=== PATIENT | female | born 2000 | race Caucasian/White ===

== ENCOUNTER 2023-11-18 09:56 | Emergency (ER) | payer MEDICAID ==
[2023-11-18 10:15] VITALS: TEMP 97.4
[2023-11-18] MEDS ORDERED: Sodium Chloride 0.9% 1000 ML 1,000 ML ONE (10:28)
[2023-11-18] MEDS: Sodium Chloride 0.9% 1000 ML 1,000 ML IV STA (10:29)
[2023-11-18] MEDS ORDERED: Zofran 4 MG/2 ML VIAL ONE (10:29)
[2023-11-18] MEDS: Zofran 4 MG/2 ML VIAL IV ONE (10:30)
[2023-11-18 10:48] LABS: Absolute Neutrophil Ct (ANC) 8.01 x10^3/uL (1.4-6.9); BASOPHIL % 0.5 % (0.0-0.4); Basophil (Absolute #) 0.05 x10^3/uL (0-0.4); Eosinophil % 0.6 % (0.00-5.0); Eosinophil (Absolute #) 0.06 x10^3/uL (0-0.5); Hematocrit 36.1 % (35-47); IMMATURE GRAN # 0.16 x10^3u/L (0.00-0.03); IMMATURE GRAN % 1.5 % (0.00-0.4); Lymphocyte (Absolute #) 1.56 x10^3/uL (1.0-4.6); Mean Cell Volume 95.3 fL (78-100); Mean Corpuscular Hemoglobin 31.7 pg (26-32); Mean Corpuscular Hgb Concent. 33.2 g/dL (32-36); Mean Platelet Volume 11.3 fL (7.5-11.0); Monocyte (Absolute #) 0.54 x10^3/uL (0.0-1.3); Monocytes % 5.2 % (0.0-12.0); Neutrophil % 77.2 % (36.0-66.0); Platelet Count 245 x10^3/uL (150-450); Red Blood Count 3.79 x10^6/uL (4.1-5.4); Red Cell Distribution Width 12.9 % (11.5-14.0); White Blood Count 10.4 x10^3/uL (4.0-10.5)
[2023-11-18 11:12] LABS: ALBUMIN 3.5 g/dL (3.5-5.0); ANION GAP 9.8 MEQ/L (5-15); BILIRUBIN,TOTAL 0.6 mg/dL (0.2-1.3); Calcium 9.2 mg/dL (8.4-10.2); Creatinine 1 0.27 mg/dL (0.52-1.04); EST GLOMERULAR FILTRATION RATE 158.7 ML/MIN; Potassium 3.6 mmol/L (3.5-5.1); Total Protein 6.1 g/dL (6.3-8.2)
[2023-11-18 11:15] LABS: Appearance Cloudy (Clear); Bacteria Moderate /HPF (None Seen); Bilirubin Small (Negative); Blood Negative (Negative); Epithelial Cells Many /HPF (None Seen); Glucose, Urine Negative (Negative); Hyaline Casts NONE SEEN /LPF (0-2); Ketones Trace (Negative); Leukocyte Esterase Small (Negative); Nitrite Negative (Negative); Ph 6.5 (4.6-8.0); Protein,Urine Dip Trace (Negative); RBC 0-2 /HPF (0-5); Specific Gravity 1.025 (1.005-1.030); WBC 21-50 /HPF (0-5)
[2023-11-18 11:16] LABS: ADD URINE CULTURE? YES (NO)
[2023-11-18 11:28] VITALS: BP 116/76; PULSE 81; RESP 20; O2SAT 95
--- NOTE | 2023-11-18 11:38 | ERPHSYRPT ---
- History of Present Illness Source: patient Exam Limitations: no limitations Patient Subjective Stated Complaint: C/O N/V X 2 days. Patient states she was on the way to see her OB doctor today and had to cake puller a few times to vomit on the way to the office. Her OB told her to go to the ER. Patient denies any fever, pain, or diarrhea. She states, "I really feel fine, I've been pretty sick at times during and assumed this was normal." Triage Nursing Assessment: Patient ambulated back to ER without difficulties. She is alert and oriented. No SOB. No cough. LO WNL. Patient is a little pale; patient doesn't think her skin tone is any different than her normal today. No edema noted. No active vomiting during assessment. Physician History: 23-year-old female who is 34 weeks developed nausea and vomiting on the way to her OB exam today. She called her OBs office who told her to come to the ER. Patient much improved upon ER presentation and denies any abdominal pain, fever, dysuria, vaginal bleeding, and vaginal discharge. Patient in stable condition and does not understand to and why she was told to come to the emergency room. Patient's Zofran prescription has run out, and she was going to get it refilled today at the OB. G1, P0 Ab0 Timing/Duration: today Severity: mild Modifying Factors: Improves With: nothing Associated Symptoms: vomiting Allergies/Adverse Reactions: No Known Drug Allergies Allergy (Verified 11/18/23 10:05) Home Medications: Ferrous Sulfate 325 mg [Feosol 325 mg] 1 tab PO DAILY 11/18/23 [History] Pnv No.95/Ferrous Fum/Folic AC [ Caplet] 1 tab PO DAILY 11/18/23 [History] Venlafaxine HCl [Venlafaxine HCl ER] 1 cap PO DAILY 11/18/23 [History] Hx Tetanus, Diphtheria Vaccination/Date Given: Yes Hx Influenza Vaccination/Date Given: No Hx Pneumococcal Vaccination/Date Given: No Immunizations Up to Date: Yes Travel Risk - International Travel Have you traveled outside of the country in past 3 weeks: No - Coronavirus Screening Are you exhibiting any of the following symptoms?: Yes Symptoms: Vomiting/Diarrhea Close contact with a COVID-19 positive Pt in past 14-21 Days: No - Vaccine Status Have you recieved a Covid-19 vaccination: Yes 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 - Review of Systems Constitutional: No Symptoms Eyes: No Symptoms Ears, Nose, & Throat: No Symptoms Respiratory: No Symptoms Cardiac: No Symptoms Abdominal/Gastrointestinal: Nausea, Vomiting Genitourinary Symptoms: No Symptoms Musculoskeletal: No Symptoms Skin: No Symptoms Neurological: No Symptoms Psychological: No Symptoms Endocrine: No Symptoms Hematologic/Lymphatic: No Symptoms Immunological/Allergic: No Symptoms - Past Medical History Pertinent Past Medical History: Yes Psycho-Social History: Bipolar, Depression Other Medical History: related anemia - Past Surgical History Past Surgical History: No - Social History Smoking Status: Never smoker Exposure to second hand smoke: No Drug Use: none Patient Lives Alone: No - Female History Hx Now: Yes Gestational Age: 34 weeks - Nursing Vital Signs Nursing Vital Signs: Initial Vital Signs Pulse Rate 91 H 11/18/23 10:05 Respiratory Rate 19 11/18/23 10:05 Blood Pressure 131/72 11/18/23 10:05 O2 Sat by Pulse Oximetry 95 11/18/23 10:05 Pain Scale Pain Intensity 0 Within normal limits - Physical Exam General Appearance: no apparent distress Eye Exam: PERRL/EOMI, eyes nml inspection Ears, Nose, Throat Exam: normal ENT inspection, TMs normal, pharynx normal, moist mucous membranes Neck Exam: normal inspection, non-tender, supple, full range of motion, No meningismus, No mass, No Brudzinski, No Kernig's Respiratory Exam: normal breath sounds, lungs clear, airway intact, No respiratory distress Cardiovascular Exam: regular rate/rhythm, normal heart sounds, normal peripheral pulses, capillary refill <2 sec, No murmur Gastrointestinal/Abdomen Exam: soft, other (), No tenderness Pelvic Exam: not done Back Exam: normal inspection, normal range of motion Extremity Exam: normal inspection, normal range of motion Neurologic Exam: alert, oriented x 3, cooperative, brass sorter II-XII nml as tested, normal mood/affect, nml cerebellar function, nml station & gait, sensation nml Skin Exam: normal color, warm, dry, No rash Lymphatic Exam: No adenopathy SpO2 Interpretation: normal SpO2: 95 O2 Delivery: Room Air - Course Nursing assessment & vital signs reviewed: Yes Ordered Tests: Active Orders 24 hr Category Date Time Status CBC W DIFF Stat Lab 11/18/23 10:28 Completed CMP Stat Lab 11/18/23 10:28 Completed CULTURE,URINE Stat Lab 11/18/23 10:28 Received MAG [MAGNESIUM] Stat Lab 11/18/23 10:28 Completed UA W/RFX UR CULTURE Stat Lab 11/18/23 10:28 Completed Medication Summary Discontinued Medications Generic Name Dose Route Start Last Admin Trade Name Vernon PRN Reason Stop Dose Admin Sodium Chloride 1,000 mls @ 999 mls/hr 11/18/23 10:27 11/18/23 11:51 Sodium Chloride 0.9% 1000 Ml IV 11/18/23 11:27 Infused .Q1H1M STA Infusion Sodium Chloride Confirm 11/18/23 10:28 Sodium Chloride 0.9% 1000 Ml Administered 11/18/23 10:29 Dose 1,000 mls @ ud .ROUTE .STK-MED ONE Ondansetron HCl 4 mg 11/18/23 10:28 11/18/23 10:30 Ondansetron Hcl 4 Mg/2 Ml Vial IV 11/18/23 10:29 4 mg STAT ONE Administration Ondansetron HCl Confirm 11/18/23 10:29 Ondansetron Hcl 4 Mg/2 Ml Vial Administered 11/18/23 10:30 Dose 4 mg .ROUTE .STK-MED ONE Lab/Rad Data: Laboratory Result Diagrams 11/18/23 10:28 11/18/23 10:28 Laboratory Results 11/18/23 11/18/23 11/18/23 Range/Units 10:28 10:28 10:28 WBC 10.4 (4.0-10.5) x10^3/uL RBC 3.79 L (4.1-5.4) x10^6/uL Hgb 12.0 (12.0-16.0) g/dL Hct 36.1 (35-47) % MCV 95.3 (78-100) fL MCH 31.7 (26-32) pg MCHC 33.2 (32-36) g/dL RDW 12.9 (11.5-14.0) % Plt Count 245 (150-450) x10^3/uL MPV 11.3 H (7.5-11.0) fL Gran % 77.2 H (36.0-66.0) % Immature Gran % (Auto) 1.5 H (0.00-0.4) % Nucleat RBC Rel Count 0.0 (0.00-0.1) % Eos # (Auto) 0.06 (0-0.5) x10^3/uL Immature Gran # (Auto) 0.16 H (0.00-0.03) x10^3u/L Absolute Lymphs (auto) 1.56 (1.0-4.6) x10^3/uL Absolute Monos (auto) 0.54 (0.0-1.3) x10^3/uL Absolute Nucleated RBC 0.00 (0.00-0.01) x10^3u/L Lymphocytes % 15.0 L (24.0-44.0) % Monocytes % 5.2 (0.0-12.0) % Eosinophils % 0.6 (0.00-5.0) % Basophils % 0.5 (0.0-0.4) % Absolute Granulocytes 8.01 H (1.4-6.9) x10^3/uL Basophils # 0.05 (0-0.4) x10^3/uL Sodium 134 L (137-145) mmol/L Potassium 3.6 (3.5-5.1) mmol/L Chloride 106 (98-107) mmol/L Carbon Dioxide 21 L (22-30) mmol/L Anion Gap 9.8 (5-15) MEQ/L BUN 4 L (7-17) mg/dL Creatinine 0.27 L (0.52-1.04) mg/dL Estimated GFR 158.7 ML/MIN Glucose 96 (74-106) mg/dL Calcium 9.2 (8.4-10.2) mg/dL Magnesium 1.7 (1.6-2.3) mg/dL Total Bilirubin 0.60 (0.2-1.3) mg/dL AST 16 (14-36) U/L ALT 13 (0-35) U/L Alkaline Phosphatase 91 (38-126) U/L Serum Total Protein 6.1 L (6.3-8.2) g/dL Albumin 3.5 (3.5-5.0) g/dL Urine Color (Yellow) Urine Appearance (Clear) Urine pH (4.6-8.0) Ur Specific Herrin (1.005-1.030) Urine Protein (Negative) Urine Glucose (UA) (Negative) mg/dL Urine Ketones (Negative) Urine Blood (Negative) Urine Nitrite (Negative) Urine Bilirubin (Negative) Urine Urobilinogen (0.2) mg/dL Ur Leukocyte Esterase (Negative) U Hyaline Cast (Auto) (0-2) /LPF Urine Microscopic RBC (0-5) /HPF Urine Microscopic WBC (0-5) /HPF Ur Epithelial Cells (None Seen) /HPF Urine Bacteria (None Seen) /HPF Urine Yeast (Budding) (None Seen) /HPF Urine Culture Reflexed (NO) 11/18/23 Range/Units 10:28 WBC (4.0-10.5) x10^3/uL RBC (4.1-5.4) x10^6/uL Hgb (12.0-16.0) g/dL Hct (35-47) % MCV (78-100) fL MCH (26-32) pg MCHC (32-36) g/dL RDW (11.5-14.0) % Plt Count (150-450) x10^3/uL MPV (7.5-11.0) fL Gran % (36.0-66.0) % Immature Gran % (Auto) (0.00-0.4) % Nucleat RBC Rel Count (0.00-0.1) % Eos # (Auto) (0-0.5) x10^3/uL Immature Gran # (Auto) (0.00-0.03) x10^3u/L Absolute Lymphs (auto) (1.0-4.6) x10^3/uL Absolute Monos (auto) (0.0-1.3) x10^3/uL Absolute Nucleated RBC (0.00-0.01) x10^3u/L Lymphocytes % (24.0-44.0) % Monocytes % (0.0-12.0) % Eosinophils % (0.00-5.0) % Basophils % (0.0-0.4) % Absolute Granulocytes (1.4-6.9) x10^3/uL Basophils # (0-0.4) x10^3/uL Sodium (137-145) mmol/L Potassium (3.5-5.1) mmol/L Chloride (98-107) mmol/L Carbon Dioxide (22-30) mmol/L Anion Gap (5-15) MEQ/L BUN (7-17) mg/dL Creatinine (0.52-1.04) mg/dL Estimated GFR ML/MIN Glucose (74-106) mg/dL Calcium (8.4-10.2) mg/dL Magnesium (1.6-2.3) mg/dL Total Bilirubin (0.2-1.3) mg/dL AST (14-36) U/L ALT (0-35) U/L Alkaline Phosphatase (38-126) U/L Serum Total Protein (6.3-8.2) g/dL Albumin (3.5-5.0) g/dL Urine Color Dark Yellow A (Yellow) Urine Appearance Cloudy A (Clear) Urine pH 6.5 (4.6-8.0) Ur Specific Herrin 1.025 (1.005-1.030) Urine Protein Trace A (Negative) Urine Glucose (UA) Negative (Negative) mg/dL Urine Ketones Trace A (Negative) Urine Blood Negative (Negative) Urine Nitrite Negative (Negative) Urine Bilirubin Small A (Negative) Urine Urobilinogen 1.0 A (0.2) mg/dL Ur Leukocyte Esterase Small A (Negative) U Hyaline Cast (Auto) NONE SEEN (0-2) /LPF Urine Microscopic RBC 0-2 (0-5) /HPF Urine Microscopic WBC 21-50 A (0-5) /HPF Ur Epithelial Cells Many A (None Seen) /HPF Urine Bacteria Moderate A (None Seen) /HPF Urine Yeast (Budding) (None Seen) /HPF Urine Culture Reflexed YES (NO) - Progress Progress: improved Progress Note: 11/18/23 11:36 Nursing note and vital signs reviewed. No food or housing insecurity noted IV access started 1 L normal saline bolus and 4 mg IV Zofran given. Patient greatly improved. Good heart sounds per nursing. Patient has mild urinary tract infection and will be treated with Macrobid 100 mg twice daily for 5 days. Zofran also prescribed. Patient discharged in stable condition to follow-up with her OB and return to ER as needed. Counseled pt/family regarding: lab results, diagnosis, need for follow-up Medical Desision Making - Diagnostic Testing Diagnostic test were ordered, analyzed, and reviewed by me: Yes - Risk of complications The pt has a mod risk of morbidity or mortality based on: Need for prescription drug management - Departure Departure Disposition: Home Clinical Impression: Hyperemesis gravidarum Condition: Stable Critical Care Time: No Referrals: MARY GOFF MD [Primary Care Provider] - Follow up/PCP as directed Instructions: Hyperemesis Gravidarum (DC) Additional Instructions: Follow-up with your OB Fluids Zofran as needed for nausea and vomiting Macrobid twice a day for 5 days for urinary tract infection Return to ER as needed Prescriptions: Ondansetron ODT 4 MG [Zofran Odt 4 mg] 4 mg PO Q6H PRN PRN #8 tablet PRN Reason: Nausea Nitrofurantoin Macro 100 mg [Macrobid 100MG Capsule] 100 mg PO BID #10 cap
== END 2023-11-18 11:55 | disposition home or self-care (01) ==
LOC: ED 09:56
DX: O21.0 Mild hyperemesis gravidarum (principal); Z3A.34 34 weeks gestation of pregnancy; Z79.899 Other long term (current) drug therapy
CPT/HCPCS: 36415; 80053; 81001; 83735; 85025; 87086; 96374; 99284; J2405

== ENCOUNTER 2023-12-14 23:46 | Inpatient (IN) | payer MEDICAID, OTHER ==
[2023-12-15 00:16] LABS: AMNISURE TEST RESULTS POSITIVE (NEGATIVE)
[2023-12-15] MEDS ORDERED: Zofran 4 MG/2 ML VIAL IV PRN (00:29)
[2023-12-15] MEDS ORDERED: XYLOCAINE 1% HCL 20 ML MDV IJ PRN (00:29)
[2023-12-15 01:00] LABS: Appearance Clear (Clear); Bacteria None Seen /HPF (None Seen); Bilirubin Negative (Negative); Blood NHT (Negative); Epithelial Cells Rare /HPF (None Seen); Glucose, Urine 500 mg/dL (Negative); Hyaline Casts NONE SEEN /LPF (0-2); Ketones Negative (Negative); Leukocyte Esterase Negative (Negative); Nitrite Negative (Negative); Ph 6.5 (4.6-8.0); Protein,Urine Dip Negative (Negative); WBC 0-2 /HPF (0-5)
[2023-12-15 01:09] LABS: ADD URINE CULTURE? YES (NO)
[2023-12-15 01:42] LABS: Amphetamine,Urine NEGATIVE (NEGATIVE); Barbiturate,Urine NEGATIVE (NEGATIVE); Benzodiazepine,Urine NEGATIVE (NEGATIVE); Cocaine,Urine NEGATIVE (NEGATIVE); Methadone,Urine NEGATIVE (NEGATIVE); Opiate,Urine NEGATIVE (NEGATIVE); PCP,Urine NEGATIVE (NEGATIVE); THC,Urine POSITIVE (NEGATIVE)
[2023-12-15 01:49] LABS: Absolute Neutrophil Ct (ANC) 11.68 x10^3/uL (1.4-6.9); BASOPHIL % 0.4 % (0.0-0.4); Basophil (Absolute #) 0.06 x10^3/uL (0-0.4); Eosinophil % 0.5 % (0.00-5.0); Eosinophil (Absolute #) 0.08 x10^3/uL (0-0.5); Hematocrit 38.4 % (35-47); Hemoglobin 12.6 g/dL (12.0-16.0); IMMATURE GRAN # 0.44 x10^3u/L (0.00-0.03); IMMATURE GRAN % 2.9 % (0.00-0.4); Lymphocyte (Absolute #) 1.84 x10^3/uL (1.0-4.6); Lymphocytes % 12.1 % (24.0-44.0); Mean Cell Volume 97.2 fL (78-100); Mean Corpuscular Hemoglobin 31.9 pg (26-32); Mean Corpuscular Hgb Concent. 32.8 g/dL (32-36); Mean Platelet Volume 11.1 fL (7.5-11.0); Monocyte (Absolute #) 1.07 x10^3/uL (0.0-1.3); Monocytes % 7.1 % (0.0-12.0); Platelet Count 243 x10^3/uL (150-450); Red Blood Count 3.95 x10^6/uL (4.1-5.4); Red Cell Distribution Width 13.2 % (11.5-14.0); White Blood Count 15.2 x10^3/uL (4.0-10.5)
[2023-12-15 02:39] LABS: ABO TYPING AB; RH TYPING NEGATIVE
[2023-12-15 02:40] LABS: Antibody Screen NEGATIVE (NEGATIVE)
[2023-12-15] MEDS ORDERED: BRETHINE 1 MG/ML SQ PRN (06:23)
[2023-12-15] MEDS: PITOCIN 30 UNITS/ LR 500 ML 30 UNITS/500 ML PLAST..BAG IV SCH ×2 (06:28→21:48)
[2023-12-15] MEDS: Lactated Ringers 1,000 ML IV SCH ×2 (06:28→21:34)
[2023-12-15] MEDS ORDERED: Ephedrine Sulfate 50 MG/ML IV PRN ×2 (07:41→07:51)
[2023-12-15] MEDS: FENTANYL 2 MCG-BUPIV 0.125%-NS 250 ML Epidur 250 ML EPIDURAL SCH (07:54)
[2023-12-15] MEDS: Lactated Ringers 1,000 ML IV ONE (08:59)
--- NOTE | 2023-12-15 09:13 | XRAY ---
Indication: Evaluate position. Limited OB ultrasound demonstrates single intrauterine currently in cephalic presentation. heart rate 141 BPM. Comment: Preliminary report was given.
[2023-12-15] MEDS ORDERED: TUCKS TP PRN (16:37)
[2023-12-15] MEDS ORDERED: Rhogam Plus 300 MCG IM ONE (16:37)
[2023-12-15] MEDS ORDERED: Dermoplast Spray TP PRN (17:00)
[2023-12-15] MEDS: LANSINOH 40 GM TOP PRN (21:17)
[2023-12-16] MEDS: Docusate Sodium 100 MG PO SCH (00:32)
[2023-12-16 07:02] LABS: Absolute Neutrophil Ct (ANC) 12.68 x10^3/uL (1.4-6.9); BASOPHIL % 0.2 % (0.0-0.4); Basophil (Absolute #) 0.04 x10^3/uL (0-0.4); Eosinophil % 0.7 % (0.00-5.0); Eosinophil (Absolute #) 0.11 x10^3/uL (0-0.5); Hematocrit 35.1 % (35-47); Hemoglobin 11.3 g/dL (12.0-16.0); IMMATURE GRAN # 0.32 x10^3u/L (0.00-0.03); Lymphocytes % 12.5 % (24.0-44.0); Mean Cell Volume 99.7 fL (78-100); Mean Corpuscular Hemoglobin 32.1 pg (26-32); Mean Corpuscular Hgb Concent. 32.2 g/dL (32-36); Mean Platelet Volume 11.3 fL (7.5-11.0); Monocyte (Absolute #) 0.91 x10^3/uL (0.0-1.3); Monocytes % 5.7 % (0.0-12.0); Neutrophil % 78.9 % (36.0-66.0); Platelet Count 201 x10^3/uL (150-450); Red Blood Count 3.52 x10^6/uL (4.1-5.4); Red Cell Distribution Width 13.6 % (11.5-14.0); White Blood Count 16.1 x10^3/uL (4.0-10.5)
[2023-12-16] MEDS: TYLENOL EXTRA STRENGTH 500 MG PO PRN (08:31)
[2023-12-16] MEDS: FERREX 150 PO SCH (08:31)
[2023-12-16] MEDS: Adacel Vial IM ONE (08:32)
[2023-12-16] MEDS: MOTRIN 400 MG PO PRN (14:48)
[2023-12-17 03:15] VITALS: O2SAT 96
[2023-12-17 09:08] VITALS: BP 131/83; PULSE 96; RESP 18; TEMP 97.8
--- NOTE | 2023-12-17 09:14 | PCM.DS ---
Discharge Summary Date of Admission: 12/14/23 23:46 Admitting Physician: WHIT MCCARTHY Consults: Consults on Case 12/15/23 17:18 Navigation ONCE Primary Care Provider: DENVER,MARY Allergies Allergies No Known Drug Allergies Allergy (Verified 11/18/23 10:05) Hospital Summary - Hospital Course Hospital Course: patient arrived in spontaneous labor, uncomplicated vaginal delivery. no problems , routine care. , mild lochia, taking po. had a second degree left labial laceration repaired at delivery with no complications - Vitals & Intake/Output Vital Signs: Vital Signs Temperature 97.8 F 12/17/23 09:00 Pulse Rate 96 H 12/17/23 09:00 Respiratory Rate 18 12/17/23 09:00 Blood Pressure 131/83 12/17/23 09:00 O2 Sat by Pulse Oximetry 96 12/17/23 03:00 Intake & Output: Intake & Output 12/14/23 12/15/23 12/16/23 12/17/23 11:59 11:59 11:59 11:59 Intake Total 1950 Output Total 400 2 Balance -400 1948 Weight 83.915 kg - Lab Result Diagrams: 12/16/23 06:59 Micro Results-Entire Visit: Microbiology 12/15/23 09:26 Urine Culture - Preliminary Catherized NO GROWTH TO DATE 12/14/23 00:10 Urine Culture - Final Urine, Void <10K NORMAL SKIN DAMARIS PROBABLE SKIN CONTAMINANT Discharge Exam General Appearance: no apparent distress Neurologic Exam: alert, oriented x 3 Respiratory Exam: normal breath sounds, lungs clear, No respiratory distress Cardiovascular Exam: regular rate/rhythm, normal heart sounds Gastrointestinal/Abdomen Exam: soft, No tenderness, No mass Final Diagnosis/Problem List - Final Discharge Diagnosis/Problem (1) Vaginal delivery Current Visit: Yes Status: Acute Code(s): O80 - ENCOUNTER FOR FULL-TERM UNCOMPLICATED DELIVERY (2) Second degree perineal laceration during delivery Current Visit: Yes Status: Acute Code(s): O70.1 - SECOND DEGREE PERINEAL LACERATION DURING DELIVERY - Discharge Disposition: Home, Self-Care Condition: Stable Prescriptions: Continue Venlafaxine HCl [Venlafaxine HCl ER] 1 cap PO DAILY Ferrous Sulfate 325 mg [Feosol 325 mg] 1 tab PO DAILY Pnv No.95/Ferrous Fum/Folic AC [ Caplet] 1 tab PO DAILY Follow up with: JAX ARITA DO [COURTESY STAFF] - 6 weeks
== END 2023-12-17 11:00 | disposition home or self-care (01) | DRG 807 ==
LOC: OB 23:46
PROVIDERS: ADMIT Family Medicine; ATTEND Family Medicine
PROC: 10E0XZZ Delivery of Products of Conception, External Approach (ICD-10-PCS; principal; 2023-12-15)
PROC: 0KQM0ZZ Repair Perineum Muscle, Open Approach (ICD-10-PCS; 2023-12-15)
DX: O70.1 Second degree perineal laceration during delivery (principal); Z37.0 Single live birth; Z3A.37 37 weeks gestation of pregnancy; Z20.828 Contact with and (suspected) exposure to other viral communicable diseases
CPT/HCPCS: 36415; 76815; 80307; 81001; 84112; 85025; 86850; 86900; 86901; 87086; 90715; 96372; J2590; A9270-GY